=== PATIENT | male | born 2005 | race Caucasian/White ===

== ENCOUNTER 2025-04-24 08:39 | Outpatient (OUT) | payer BC, SELFPAY ==
[2025-04-24 09:01] LABS: Hematocrit 44.5 % (42.0-54.0); Hemoglobin 14.7 g/dL (14.0-18.0); Immature Granulocytes Abs Auto 0.01 10^3/uL (0.00-0.03); Immature Granulocytes Pct Auto 0.2 % (0.0-0.5); Lymphocytes Absolute Auto 2.0 10^3/uL (1.2-3.8); Mean Corpuscular HGB Conc 33.0 g/dL (29.9-35.2); Mean Corpuscular Hemoglobin 27.2 pg (25.9-34.0); Mean Corpuscular Volume 82.3 fL (80.0-94.0); Platelet Count 191 10^3/uL (150-450); Red Blood Count 5.41 10^6/uL (4.70-6.10); White Blood Count 5.3 10^3/uL (4.0-11.0)
--- NOTE | 2025-04-24 09:13 | CT_ITS ---
The [address] [address] Patient Name: GLO BURNETTE MRN: [id number] date: 2005 Sex: M Assigned Patient Location: LAB Current Patient Location: LAB Accession/Order Number: [id number] Exam Date: 04/24/2025 10:30 Report Date: 04/24/2025 11:18 At the request of: SHELTON HUMPHREY DO Procedure: CT abdomen pelvis wo con CT ABDOMEN AND PELVIS WITHOUT INTRAVENOUS CONTRAST COMPARISON: None CLINICAL DATA: Abdominal pain Spiral images were obtained through the abdomen and pelvis with oral contrast only. This CT exam was performed using one or more following dose reduction techniques: Automated exposure control, adjustment of the mA and/or kV according to patient size, or use of iterative reconstruction technique. Limited cuts through the lung bases show no contributory findings. Evaluation of the intra-abdominal organs is slightly limited by the absence of contrast and paucity of fat. The gallbladder is partially contracted and the wall appears thickened. No calcified gallstones are seen. No intrahepatic masses are identified. The spleen, pancreas and adrenal glands show no acute findings. No renal calculi or hydronephrosis are identified. No ureteral dilatation or stones are seen. There is no aortic aneurysm. No ascites is seen. Assessment for adenopathy is slightly limited by paucity of intra-abdominal fat. The small bowel loops are not dilated. There is air and mild stool along the colon. The bony structures are intact. Images through the pelvis show normal caliber small bowel loops. No appendiceal inflammation is noted. The distal colon is underdistended. No obvious diverticular disease is seen. The prostate is normal size. No urinary bladder abnormalities are identified. There is no ascites. CT/CT abdomen pelvis wo con IMPRESSION: NO BOWEL OR URINARY TRACT OBSTRUCTION. NO DEFINITE ACUTE FINDINGS. Impression dictated by: Blanca Bruno M.D. 04/24/2025 11:18 AM Dictation Location: [place] [address] Electronically authenticated by: [id number] Y Date: 04/24/2025 11:18
[2025-04-24 09:16] LABS: Alanine Aminotransferase 40 U/L (16-63); Albumin Globulin Ratio 1.5; Albumin Level 4.1 g/dL (3.4-5.0); Alkaline Phosphatase 88 U/L (46-116); Anion Gap 11.3; Aspartate Amino Transferase 26 U/L (15-37); Blood Urea Nitrogen 13.0 mg/dL (7.0-18.0); Calcium 9.1 mg/dL (8.5-10.1); Carbon Dioxide 28.7 mmol/L (21.0-32.0); Chloride 105 mmol/L (98-107); Estimated GFR (African America >60 (>=60 mL/min/1.73m^2); Estimated GFR (Non-African Ame >60 (>=60 mL/min/1.73m^2); Globulin 2.7 g/dL; Glucose 105 mg/dL (74-106); Lipase 22.0 U/L (16.0-77.0); Potassium 4.0 mmol/L (3.5-5.1); Sodium 141 mmol/L (136-145); Total Protein 6.8 g/dL (6.4-8.2)
== END 2025-04-24 08:40 | disposition home or self-care (01) ==
LOC: LAB 08:44
PROVIDERS: PCP Family Medicine; Visit Provider Family Medicine
DX: R10.9 Unspecified abdominal pain (principal)
CPT/HCPCS: 36415; 74176; 80053; 83690; 85025

== ENCOUNTER 2025-05-01 09:43 | Outpatient (OUT) | payer BC, SELFPAY ==
--- NOTE | 2025-05-01 09:49 | US_ITS ---
The [place] [id number] Patient Name: GLO BURNETTE MRN: [id number] date: 2005 Sex: M Assigned Patient Location: US Current Patient Location: Accession/Order Number: [id number] Exam Date: 05/01/2025 09:50 Report Date: 05/01/2025 12:35 At the request of: SHELTON HUMPHREY DO Procedure: US right upper quadrant LIMITED RIGHT UPPER QUADRANT ABDOMINAL ULTRASOUND CLINICAL HISTORY: abdominal pain, thickening of gallbladder wall on CT COMPARISON: 04/24/2025 The gallbladder is partially contracted. No shadowing calculi, wall thickening or pericholecystic fluid are seen. No intra- or extrahepatic biliary dilatation is evident. The common duct measures 2 - 3 mm. The liver is normal in echogenicity. No intrahepatic masses are seen. There is appropriate hepatopetal flow within the main portal vein. The pancreas shows no significant sonographic abnormality. Evaluation of the right kidney reveals no hydronephrosis or fluid within Rosen's pouch. US/US right upper quadrant IMPRESSION: NEGATIVE ULTRASOUND OF THE RIGHT UPPER QUADRANT. Impression dictated by: Blanca Bruno M.D. 05/01/2025 12:35 PM Dictation Location: [place] [address] Electronically authenticated by: [id number] Y Date: 05/01/2025 12:35
== END 2025-05-01 09:44 | disposition home or self-care (01) ==
LOC: US 09:43
PROVIDERS: PCP Family Medicine; Visit Provider Family Medicine
DX: R10.11 Right upper quadrant pain (principal); K82.8 Other specified diseases of gallbladder
CPT/HCPCS: 76705

== ENCOUNTER 2025-05-28 06:50 | Outpatient (OUT) | payer BC, SELFPAY ==
--- OUTSIDE RECORDS SUMMARY | 2025-05-15 05:20 | XMS_ITS | Continuity of Care Document ---
Author Organization [facility] Address [address] [place] [address] Phone Care Team Providers Care Stitcher Special Machine Name Role Phone VeenaEzequielKezia DO Primary Care Provider Kezia Curiel DO Attending Provider Care Teams Patient Care Team Team Status: Active Member Role/Relationship Status Dates Kezia Veena , DO Primary Care Provider Active Visit Care Team Team Status: Inactive Member Role/Relationship Status Dates Kezia Veena , DO Primary Care Provider Active S tart: April 17, 2025 End: April 17, 2025Jessica Veena , DOAttending ProviderActiveStart: April 17, 2025 End: April 17, 2025 Visit Care Team Team Status: Active Member Role/Relationship Status Dates Kezia Veena , DO Primary Care Provider Active S tart: April 24, 2025 Kezia Veena , DOAttending ProviderActiveStart: April 24, 2025 Patient Care Team Team Status: Inactive Member Role/Relationship Status Dates Kezia Veena , DO Primary Care Provider Active S tart: May 15, 2025 End: May 15, 2025Jessica Veena , DOAttending ProviderActiveStart: May 15, 2025 End: May 15, 2025 Chief Complaint and Reason for Visit Chief Complaint Admit Date new patient April 17, 2025 8 :56am 1M May 15, 2025 9:17am Reason for Visit Admit Date Abdominal pain April 17, 2025 8 :56am Epidermal cyst of neck April 17 8:56am Abdominal pain May 15, 2025 9:17am RUQ pain May 15, 2025 9:17am Epidermal cyst of neck May 15 9:17am Thickening of wall of gallbladder Novemb er 2024 9:17am Allergies, Adverse Reactions, Alerts Allergen Type Severity Reaction Last Updated Verified Status No Known Allergies Allergy Unknown May 15, 2025 9:36amYesActive Social History Smoking Status Status Start Date End Date Date of Observa tion Smokes tobacco daily (finding) April 17, 2025 9:14am Observation Status Observation Response Date of Response Legal Sex Male (finding) Sex Assigned At BirthMaleJuly 2004 Family History Relationship Condition Age at Onset Recorded Date/T carlos maternal grandmother Malignant neoplasm Unknown HypertensionUnknownDiabetes mellitusUnknownmaternal grandfatherMyocardial infarctionUnknownCerebrovascular accident (CVA)Unknown Problems Active Problems Problem Diagnosis/Recorded Date Onset Date Stat us RUQ pain May 15, 2025 10:11am Unknown Active Abdominal pain April 17, 2025 8:53am Unknown Active Inactive/Resolved Problems Problem Diagnosis/Recorded Date Onset Date Stat us Epidermal cyst of neck April 17, 2025 8:57am Unkno wn Resolved Thickening of wall of gallbladder April 24, 2025 1 2:14pm Unknown Resolved Medications No known medications Relevant Diagnostic Tests and/or Laboratory Data Laboratory Results Test Collection Date/Time Result Date/Time Result Interpretation Reference Range Result Comment Performing Site Lipase April 24, 2025 7:51am April 24, 2025 7: 51am 22.0 U/L 16.0-77.0Anion GapApril 24, 2025 7:51amOctober 2024 7:51am11.3 Basophils # (Auto)April 24, 2025 7:51amOctober 2024 7:51am0.0 10 3/uL 0.0-0.1Albumin/Globulin RatioApril 24, 2025 7:51amOctober 2024 7:51am 1.5Basophils (%) (Auto)April 24, 2025 7:51amOctober 2024 7:51am0.2 % 0.2-2.0AlbuminApril 24, 2025 7:51amOctober 2024 7:51am4.1 g/dL3.4-5.0 Eosinophils # (Auto)April 24, 2025 7:51amOctober 2024 7:51am0.1 10 3/uL0.0-0.7Alkaline PhosphataseOct2024 7:51amOctober 2024 7:51am88 U/D88-936Jcxqazvzwft (%) (Auto)April 24, 2025 7:51amOctober 2024 7:51am0.9 %0.9-7.0Alanine Aminotransferase (ALT/SGPT)April 24, 2025 7:51amOctober 2024 7:51am40 U/X47-65AbnjvvaqnnXspveph 2024 7:51am April 24, 2025 7:51am44.5 %42.0-54.0Aspartate Amino Transf (AST/SGOT)April 24, 2025 7:51amOctober 2024 7:51am26 U/E58-50TzcxmvvwrnEdcxuvy 2024 7:51amOctober 2024 7:51am14.7 g/dL14.0-18.0BUN/Creatinine Ratio April 24, 2025 7:51amOctober 2024 7:51am13.4Immature Granulocyte # (Auto)April 24, 2025 7:51amOctober 2024 7:51am0.01 10 3/uL0.00-0.03 Blood Urea NitrogenOct2024 7:51amOctober 2024 7:51am13.0 mg/dL 7.0-18.0Immature Granulocyte % (Auto)April 24, 2025 7:51amOctober 2024 7:51am0.2 %0.0-0.5Calcium LevelOctober 2024 7:51amOctober 2024 7:51am9.1 mg/dL8.5-10.1Lymphocytes # (Auto)April 24, 2025 7:51amOctober 2024 7:51am2.0 10 3/uL1.2-3.8Chloride LevelOctober 2024 7:51am April 24, 2025 7:97bm382 mmol/P75-877Kkojpkubdxq (%) (Auto)April 24, 2025 7:51amOctober 2024 7:51am38.6 %20.5-60.0Carbon Dioxide LevelOct2024 7:51amOctober 2024 7:51am28.7 mmol/L21.0-32.0Mean Corpuscular HemoglobinOct2024 7:51amOctober 2024 7:51am27.2 pg25.9-34.0 CreatinineOct2024 7:51amOctober 2024 7:51am0.97 mg/dL0.70-1.30 Mean Corpuscular Hemoglobin ConcentOct2024 7:51amOctober 2024 7:51am33.0 g/dL29.9-35.2Estimated GFR ()April 24, 2025 7:51amOctober 2024 7:51am>60>=60 mL/min/1.73m 2Mean Corpuscular Volume April 24, 2025 7:51amOctober 2024 7:51am82.3 fL80.0-94.0Estimated GFR (Non- AmericanOct2024 7:51amOctober 2024 7:51am>60>=60 mL/min/1.73m 2Monocytes # (Auto)April 24, 2025 7:51amOctober 2024 7:51am0.4 10 3/uL0.3-0.8GlobulinApril 24, 2025 7:51amOctober 2024 7:51am2.7 g/dLMonocytes (%) (Auto)April 24, 2025 7:51amOctober 2024 7:51am6.8 %1.7-12.0Glucose LevelOct2024 7:51amOctober 2024 7:78bq704 mg/wX07-375Dtmy Platelet VolumeOct2024 7:51amOctober 2024 7:51am8.9 fLBelow low normal9.5-13.5Potassium LevelOct2024 7:51amOctober 2024 7:51am4.0 mmol/L3.5-5.1Neutrophils # (Auto)April 24, 2025 7:51amOctober 2024 7:51am2.8 10 3/uL1.4-6.5Sodium LevelOct2024 7:51amOctober 2024 7:25zt538 mmol/G348-654Bitwdbuixiz (%) (Auto)April 24, 2025 7:51amOctober 2024 7:51am53.3 %43.0-75.0Total BilirubinOct2024 7:51amOct2024 7:51am0.5 mg/dL0.2-1.0 Platelet CountOct2024 7:51amOct2024 7:18ah229 10 3/uL 150-450Total ProteinOct2024 7:51amOct2024 7:51am6.8 g/dL 6.4-8.2Red Blood CountOct2024 7:51amOct2024 7:51am5.41 10 6/uL4.70-6.10Red Cell Distribution WidthOct2024 7:51amOct2024 7:51am13.2 %11.0-15.0Corrected White Blood CountOctober 2024 7:51am April 24, 2025 7:51am5.3 10 3/uL4.0-11.0 Vital Signs Vital Reading Result Reference Range Collection Date/Time Height 73 [in_i] April 17, 2025 8:31zzHljivr03.79 kgOctober 2024 8:04amHeart Rate82 /zol31-437Sxgxmrr 16th, 2025 8:04amRespiratory rate16 /vqo25-39Xvuauop 16th, 2025 8:04amOxygen saturation by Pulse oucbrmyf33 %95-100[facility] 2024 8:04amBP Ixioxtsm202 mm[Hg]100-140[facility] 2024 8:04amBP Bcmpquppr95 mm[Hg] 60-100[facility] 2024 8:04amBMI (Body Mass Index)16.2 kg/t3Ygthgqd 2024 8:64rsCovdpl60 [in_i]May 15, 2025 9:17ufObjlkl47.15 [facility] 9:33amHeart Rate84 /ppa12-914Wendwgbx 13th, 2025 9:33amRespiratory rate16 /vdl85-33Wagdkwhm 2024 9:33amOxygen saturation by Pulse qyvjrszx97 %95-100 May 15, 2025 9:33amBP Qofzefso297 mm[Hg]100-140[facility] 2024 9:33am BP Hktlarega42 mm[Hg]60-100[facility] 2024 9:33amBMI (Body Mass Index)16.6 kg/w1Wifajjtp 2024 9:33am Advance Directives Advance Directive Response Recorded Date/ Time Advance Directives No March 10:52am Insurance Providers Guarantor Lazaro Villa Address [address] [place] [address]jk[employer] Info.Home Phone: Coverage Status Update:2025 Payer Group Member ID Coverage Type Subscriber Relationship to Subscriber Effective Date Expiration Date Estefania FERNANDEZ [id number] Fry Id: [id number] [address] [place] [address] Home Phone: Email: .T.H.E. MedicalSelf Encounters Encounter Location(s) Arrival/Admit Date Discharge/Departure Date Discharge/Departure Disposition Provider(s) Departed Physician/ Provider Office Visit -[facility] [place] April 17, 2025 8:56am April 17, 2025 9:58am Discharged to home care or self care (routine discharge) Kezia Veena , DO Non-patient / Non-visit -[facility] ctober 2024 8:51am Kezia Curiel , ANGELYeparted Physician/Provider Office Visit-[facility] Family Medicine [facility] 2024 9:17amNovember 2024 10:15amDischarged to home care or self care (routine discharge)Kezia Curiel DO Recent Diagnosis Onset Date Admit Date Abdominal pain Unknown April 17 8:56am Epidermal cyst of neck Unknown April 022024 8:56am Abdominal pain Unknown May 15, 025 9:17am RUQ pain Unknown May 15 9:17am Epidermal cyst of neck Unknown May 15, 2025 9:17am Thickening of wall of gallbladder Unknown May 15, 2025 9:17am Assessments Diagnosis Onset Date Resolution Status Admit Date Abdominal pain acuteOctober 2024 8:56amEpidermal cyst of neckinactiveOctober 2024 8:56amAbdominal painacuteNovember 2024 9:17amRUQ painacuteNovember 2024 9:17amEpidermal cyst of neckinactiveNovember 2024 9:17amThickening of wall of gallbladderinactiveNovember 2024 9:17am Plan of Treatment Author [facility] Curiel [facility] CenterAuthoredOctober 2024 8:[address]amWill [address] Scan without contrast. Will check cbc, cmp, lipase. will refer to General Surgery, Dr. Charles once CT is back. Return to clinic 1 month. Future Tests Future scheduled test information is unavailable Pending Tests Test Name Ordered Date Scheduled Date CT abdomen pelvis wo con April 17, 2025 8:51 am Comprehensive Metabolic PanelOctober 2024 8:51am Future Visits Future appointment information is unavailable Future Procedures Future procedure information is unavailable Future Medications Future medication information is unavailable Patient Instructions Patient instructions are unavailable
--- OUTSIDE RECORDS SUMMARY | 2025-05-15 23:59 | XMS_ITS | Continuity of Care Document ---
Author Organization [facility] [place] Address [address], [address] [place] [address] Support Name Relationship Address Phone JOHNATHAN MOE Personal Relationship Unknown Un available Encounter FT_AMBFIN [id number] Date(s): 05/15/25 - 05/15/25 [facility] [place] [address], [address] [place] [address]- Encounter Diagnosis Epidermal cyst of neck(Discharge Diagnosis) - 05/15/25 Abdominal pain, right upper quadrant(Discharge Diagnosis) - 05/15/25 Nausea(Discharge Diagnosis) - 05/15/25 Discharge Disposition: Home (Routine DC) Attending Physician: Jerome MERCADO MD Encounter Type: Clinic Allergies, Adverse Reactions, Alerts No Known Allergies Medications No Known Medications Problem List ConditionConfirmationCourseEffective DatesStatusHealth StatusInformantAsthma ConfirmedActiveBMI < 18.5ConfirmedActiveEpidermal cyst of neckConfirmedActive NauseaConfirmedActiveAbdominal pain, right upper quadrantConfirmedActive Procedures ProcedureDateRelated DiagnosisBody SiteStatusNoneCompleted Social History Social History TypeResponseSmoking StatusNever (less than 100 in lifetime); Smokeless tobacco use: Current vaping or e-cigarette use; Type: Vaping; Smoking Cessation Yes; Tobacco use per day: 18; entered on: 05/15/25Birth SexMaleSex RepresentationMale (finding) Patient Care team information Care Team Related Persons Name: JOHNATHAN MOE Insurance Providers Guarantor name: Health Plan Information #: 1 Payer: Estefania Payer Identifier: [id number] Member Number: [id number] Group Number: [id number] Subscriber Identifier: [id number] Relationship to Subscriber: self Coverage Type: PRIVATE HEALTH INSURANCE Coverage Verification Date: 25 Telecom: [phone] Address: [facility] [address] [place] [address]
--- NOTE | 2025-05-28 06:55 | NM_ITS ---
The [address] [address] Patient Name: GLO BURNETTE MRN: [id number] date: 2005 Sex: M Assigned Patient Location: [facility] Current Patient Location: [facility] Accession/Order Number: [id number] Exam Date: 05/28/2025 06:55 Report Date: 05/28/2025 10:55 At the request of: SHELTON HUMPHREY DO Procedure: NM hepatobiliary w pharm HIDA SCAN WITH CCK CLINICAL HISTORY: RIGHT UPPER QUADRANT PAIN, THICKENED GALL BLADDER WALL COMPARISON: CT 04/24/2025 and ultrasound 05/01/2025 Following the intravenous administration of 4.9 mCi of technetium 99m labeled Mebrofenin, anterior imaging of the abdomen was performed out to 60 minutes. There is uniform distribution of radionuclide within the liver. The common duct is visualized by 10 minutes. There is gallbladder activity at 10 minutes. The small bowel is definitely seen by 20 minutes. The patient was subsequently infused with 1.14 mcg of CCK and imaging was performed an additional 60 minutes. There is appropriate emptying of the gallbladder on the static and dynamic images. A time/activity curve was generated. The gallbladder ejection fraction is 98%. Normal is greater than 40%. NM/NM hepatobiliary w pharm IMPRESSION: WITHIN NORMAL LIMITS. Impression dictated by: Blanca Bruno M.D. 05/28/2025 10:55 AM Dictation Location: [place] [address] Electronically authenticated by: [id number] Y Date: 05/28/2025 10:55
== END 2025-05-28 06:51 | disposition home or self-care (01) ==
LOC: NM 06:50
PROVIDERS: PCP Family Medicine; Visit Provider Family Medicine
DX: R10.11 Right upper quadrant pain (principal); K82.8 Other specified diseases of gallbladder
CPT/HCPCS: 78227; A9537; J2805

== ENCOUNTER 2025-06-03 08:59 | Outpatient (OUT) | payer BC, SELFPAY | END 2025-06-03 09:00 | disposition home or self-care (01) | LOC: PST 09:00 | PROVIDERS: PCP Family Medicine; Visit Provider Surgery | DX: Z01.818 Encounter for other preprocedural examination (principal); R10.11 Right upper quadrant pain; R11.0 Nausea; L72.0 Epidermal cyst ==

== ENCOUNTER 2025-06-11 08:01 | Day surgery (SDC) | payer BC, SELFPAY ==
--- NOTE | 2025-06-11 | OP_ITS ---
OPERATION DATE: 06/11/2025 PREOPERATIVE DIAGNOSIS: Upper abdominal pain, intermittent nausea, as well as enlarging cyst right posterior neck. POSTOPERATIVE DIAGNOSIS: Mild bile reflux, otherwise normal EGD, and 2 cm epidermal cyst. PROCEDURE: EGD and excisional biopsy epidermal cyst right posterior neck, 2 cm in size. SURGEON: Jerome Charles M.D. INDICATIONS AND CONSENT: Patient is a 20-year-old male with a long history of intermittent upper abdominal pain, as well as nausea. He has had a negative CT scan and ultrasound. He also has an enlarging epidermal cyst of the right posterior neck that has been present for several years, with no episodes of infection. Indications, risks, benefits, alternatives of proceeding with EGD and excisional biopsy of the right posterior neck cyst were explained extensively to the patient, including the risks of bleeding, infection, scarring, pain, recurrence of the cyst, esophageal/gastric/duodenal perforation or anesthetic complications. All of his questions were answered. Informed consent was obtained. PROCEDURE: Patient brought to the operating room, placed in the left lateral decubitus position. Monitored anesthesia care was provided. Bite block was placed in the patient?s mouth. Scope was inserted into the oropharynx. Under direct visualization, it was advanced into the esophagus, past the cricopharyngeus, down to the stomach. The stomach was insufflated with air. The pylorus was traversed down to the descending portion of the duodenum. There was no evidence of duodenitis or ulceration. There was no scarring within the pyloric channel. Scope was pulled back into the stomach and retroflexed. There was no significant hiatal hernia. No gastritis or ulcerations. The GE junction was noted at 40 cm. There was no distal esophagitis or Chapin?s changes. There was some mild some mild bile reflux in the stomach. The remainder of the esophagus was unremarkable. The scope was then withdrawn. He was then positioned for excision of the cyst. This was prepped and draped in the usual sterile fashion. It was anesthetized with 0.5% Marcaine. An incision was made over the long axis of the lesion and carried down through subcutaneous tissue using sharp dissection. The 2 cm epidermal cyst was encountered and excised, sent off to Pathology. The wound was irrigated. Subcutaneous tissue was re-approximated with interrupted 3-0 Monocryl suture. Skin was then closed with a running 4-0 subcuticular Monocryl suture and skin glue. A sterile pressure dressing was applied. Sponge and needle counts were correct x2 per nursing personnel. Patient tolerated procedure well, was sent back to recovery room in good condition. CC: Kerri Olivo
[2025-06-11 08:10] VITALS: BP 107/27; PULSE 71; TEMP 36; O2SAT 100; BMI 16.1
[2025-06-11] MEDS: BUPIVACAINE HCL 0.5% PF 50 MG/10 ML VIAL 5 ML INJ (10:55)
[2025-06-11 11:33] VITALS: BP 87/52; PULSE 68; O2SAT 99
[2025-06-11 11:48] VITALS: BP 90/49; PULSE 64; O2SAT 98
[2025-06-11 12:03] VITALS: BP 99/60; PULSE 68; O2SAT 97
[2025-06-11 12:33] VITALS: BP 104/84; PULSE 70; TEMP 36.9; O2SAT 99
--- NOTE | 2025-06-11 12:59 | PC.NURSE ---
1233 reviewed discharge packet with patient's aunt and patient himself. Aunt verbalizes understanding and patient discharged in stable condition with packet
== END 2025-06-11 12:33 | disposition home or self-care (01) ==
LOC: SURGOUT 08:02
PROVIDERS: PCP Family Medicine; Visit Provider Surgery
PROC: (CPT 731; principal; 2025-06-11 09:45)
PROC: (CPT 731; 2025-06-11 09:45)
DX: R10.11 Right upper quadrant pain (principal); R11.0 Nausea; K21.9 Gastro-esophageal reflux disease without esophagitis; L72.0 Epidermal cyst; J45.909 Unspecified asthma, uncomplicated; F41.9 Anxiety disorder, unspecified; F17.290 Nicotine dependence, other tobacco product, uncomplicated
CPT/HCPCS: 11423; 12042; 43235; 88304; J0665; J2704; J3010